=== PATIENT | female | born 1955 | race Caucasian/White ===

== ENCOUNTER 2024-08-28 18:36 | Emergency (ER) | payer MEDICARE ==
[~2024-08-28] VITALS: Ht 162.6 cm; Wt 72.6 kg
[2024-08-28] MEDS ORDERED: LIDOCAINE 1%-EPI 1:100,000 20 ML VIAL ONE (21:33)
[2024-08-28] MEDS: LIDOCAINE 1%-EPI 1:100,000 50 ML VIAL IJ ONE (22:16)
[2024-08-28] MEDS ORDERED: PROPOFOL 20 ML IV ONE (22:28)
[2024-08-28] MEDS ORDERED: KETAMINE HCL(200MG/20ML) 10 MG/ML VIAL IV ONE (22:30)
[2024-08-28] MEDS ORDERED: PROPOFOL 1,000 MG/100 ML BOTTLE IV ONE (22:30)
[2024-08-28] MEDS: PROPOFOL 200 MG/20 ML VIAL IV ONE (23:27)
[2024-08-28] MEDS: KETAMINE HCL(200MG/20ML) 10 MG/ML VIAL IV ONE (23:27)
[2024-08-29] MEDS ORDERED: IV NS 0.9% 1,000 ML IV PRN
[2024-08-29] MEDS ORDERED: ONDANSETRON HCL/PF 4 MG/2 ML VIAL IVP PRN
[2024-08-29] MEDS ORDERED: MORPHINE SULFATE INJ 2 MG/ML DISP.SYRIN IV PRN
[2024-08-29 00:09] LABS: BASOPHILS # (AUTO) 0.1 K/uL (0.0-0.2); BASOPHILS % (AUTO) 1.1 % (0.0-2.0); EOSINOPHILS # (AUTO) 0.1 K/uL (0.0-0.7); EOSINOPHILS % (AUTO) 1.2 % (0.0-6.0); HEMATOCRIT 38 % (33-45); HEMOGLOBIN 13.1 g/dL (11.5-14.8); LYMPHOCYTES # (AUTO) 2.2 K/uL (0.8-4.8); LYMPHOCYTES % (AUTO) 27.5 % (20.0-44.0); MEAN CORPUSCULAR HEMOGLOBIN 29 PG (26.0-33.0); MEAN CORPUSCULAR HGB CONC 35 g/dl (31.0-36.0); MEAN CORPUSCULAR VOLUME 85 fL (82-100); MONOCYTES # (AUTO) 0.9 K/uL (0.1-1.30); MONOCYTES % (AUTO) 10.8 % (2.0-12.0); NEUTROPHILS # (AUTO) 4.8 K/uL (1.8-8.9); NEUTROPHILS % (AUTO) 59.4 % (43.0-81.0); PLATELET COUNT (AUTO) 371 K/uL (150-450); RED BLOOD CELL COUNT(AUTO) 4.44 MIL/uL (4.0-5.2); RED CELL DISTRIBUTION WIDTH 15.3 % (11.5-15.0); WHITE BLOOD COUNT (AUTO) 8.1 K/uL (4.3-11.0)
[2024-08-29 00:17] LABS: CALCIUM, SERUM 8.3 mg/dL (8.5-10.1); CREATININE 0.6 mg/dL (0.6-1.3); POTASSIUM 3.5 mmol/L (3.5-5.1)
[2024-08-29] MEDS ORDERED: ONDANSETRON HCL/PF 4 MG/2 ML VIAL ONE (00:29)
[2024-08-29] MEDS: ONDANSETRON HCL/PF - ER 4 MG/2 ML VIAL IV ONE (00:31)
[2024-08-29 00:37] LABS: INR 1.01 (0.91-1.10); PROTHROMBIN TIME 10.7 SECS (9.2-11.1)
[2024-08-29 00:57] VITALS: BP 144/89; TEMP 98.3; O2SAT 98
[2024-08-29] MEDS ORDERED: PANTOPRAZOLE 40 MG VIAL IV SCH (09:00)
== END 2024-08-29 00:57 | disposition home or self-care (01) ==
LOC: EDBD 18:36 → ER 18:36
DX: S82.51XA Displaced fracture of medial malleolus of right tibia, initial encounter for closed fracture (principal); W18.39XA Other fall on same level, initial encounter; Y93.89 Activity, other specified; Y92.89 Other specified places as the place of occurrence of the external cause; Y99.8 Other external cause status
CPT/HCPCS: 99285; 27840; 71045; 99152; 73610 ×2; 73590; 85025; 80048; 85610; 36415 ×2; 86850; 93005; 96374; J2704; J3490; J2405 ×2; G0500